=== PATIENT | female | born 1985 | race Caucasian/White ===

== ENCOUNTER 2020-09-13 07:32 | Inpatient (IN) ==
[2020-09-13] MEDS ORDERED: Famotidine 20 MG/2 ML VIAL IVP PRN (07:46)
[2020-09-13] MEDS ORDERED: Azithromycin 500 MG in 0.9 % Sodium Chloride 250 ML IVPB ONE (07:46)
[2020-09-13] MEDS ORDERED: Naloxone 0.4 MG/ML INJ IVP PRN (07:46)
[2020-09-13] MEDS ORDERED: Metoclopramide 10 MG/2 ML VIAL IVP PRN (07:46)
[2020-09-13] MEDS ORDERED: *HR* Nalbuphine 10 MG/ML AMPUL IV PRN (07:46)
[2020-09-13] MEDS ORDERED: Lidocaine 1% 20 ML MDV ID PRN (07:46)
[2020-09-13] MEDS ORDERED: Ondansetron 4 MG/2 ML VIAL IVP PRN (07:46)
[2020-09-13] MEDS ORDERED: Ringers Solution, Lactated 1,000 ML ONE (07:51)
[2020-09-13] MEDS ORDERED: EPHEDrine 50 MG/ML VIAL IVP PRN (07:53)
[2020-09-13] MEDS ORDERED: *HR* Nalbuphine 10 MG/ML AMPUL ONE (07:54)
[2020-09-13] MEDS ORDERED: Ringers Solution, Lactated 1,000 ML IVC SCH (08:00)
[2020-09-13] MEDS ORDERED: Epidural Premix (fent/bupiv) 110 ML EP SCH (08:00)
[2020-09-13 08:08] LABS: Basophils % 0.3 %; Eosinophils # 0.1 K/mcL (0.0-0.6); Eosinophils % 0.5 %; Hematocrit 37.1 % (35.3-44.9); Hemoglobin 12.6 g/dL (11.5-15.4); Lymphocytes % 10.8 %; Mean Corpuscular Hemoglobin 31.1 pg (28.0-33.3); Mean Corpuscular Volume 91.6 fL (83.0-100.0); Mean Platelet Volume 11.6 fL (9.4-12.4); Monocytes # 0.4 K/mcL (0.0-1.3); Monocytes % 4.6 %; Neutrophils # 7.6 K/mcL (1.6-8.9); Platelet Count 169 K/mcL (140-400); Red Blood Count 4.05 M/mcL (3.82-4.97); Red Cell Distribution Width 13.6 % (11.5-14.5); Segmented Neutrophils % 82.8 %; White Blood Count 9.2 K/mcL (4.3-11.1)
[2020-09-13 12:39] LABS: Influenza A PCR Negative (Negative); Influenza B PCR Negative (Negative); Resp. Syncytial Virus PCR Negative (Negative); SARS-CoV-2 by PCR (In House) Negative (Negative)
[2020-09-13] MEDS ORDERED: Oxytocin 20 units/ LR 1000 mL 20 UNIT/1,000 ML BAG IVC ONE ×2 (19:38→22:24)
[2020-09-13] MEDS ORDERED: Acetaminophen 325 MG TABLET PO PRN (22:24)
[2020-09-13] MEDS ORDERED: Measles/Mumps/Rubella Vacc 0.5 ML VIAL SQ PRN (22:24)
[2020-09-13] MEDS ORDERED: Rho Immune Globulin 1,500 UNIT SYRINGE IM PRN (22:24)
[2020-09-13] MEDS ORDERED: Oxytocin 20 units/ LR 1000 mL 20 UNIT/1,000 ML BAG IVC SCH (22:24)
[2020-09-14] MEDS: Ibuprofen 600 MG TABLET PO PRN ×3 (07:52→20:40)
[2020-09-14] MEDS: Prenatal Vit/FA 1 EACH TABLET PO SCH (07:53)
[2020-09-14] MEDS: Lanolin 7 G OINT...G. TP PRN (07:53)
[2020-09-14 16:18] LABS: Basophils % 0.2 %; Eosinophils # 0.1 K/mcL (0.0-0.6); Eosinophils % 0.5 %; Hematocrit 31.6 % (35.3-44.9); Immature Granulocytes % 0.5 % (0-4); Lymphocytes # 1.4 K/mcL (0.6-4.6); Lymphocytes % 10.3 %; Mean Corpuscular HGB Conc 32.6 g/dL (31.6-35.5); Mean Corpuscular Volume 95.2 fL (83.0-100.0); Monocytes # 0.8 K/mcL (0.0-1.3); Monocytes % 5.8 %; Neutrophils # 10.9 K/mcL (1.6-8.9); Platelet Count 134 K/mcL (140-400); Red Blood Count 3.32 M/mcL (3.82-4.97); Red Cell Distribution Width 14.2 % (11.5-14.5); Segmented Neutrophils % 82.7 %; White Blood Count 13.2 K/mcL (4.3-11.1)
[2020-09-14 16:19] LABS: Hemoglobin 10.3 g/dL (11.5-15.4)
[2020-09-15] MEDS: Ibuprofen 600 MG TABLET PO PRN (07:24)
[2020-09-15] MEDS: Lanolin 7 G OINT...G. TP PRN (07:25)
[2020-09-15] MEDS: Prenatal Vit/FA 1 EACH TABLET PO SCH (07:25)
[2020-09-15 08:19] VITALS: BP 113/76
== END 2020-09-15 13:20 | disposition home or self-care (01) | DRG 807 ==
LOC: 1NENULAB 07:32 → 1NENUOBS 09-14 00:24
PROVIDERS: ADMIT Obstetrics & Gynecology; ATTEND Obstetrics & Gynecology